=== PATIENT | male | born 1970 | race Caucasian/White ===

== ENCOUNTER 2021-11-20 13:23 | Emergency (ER) | payer OTHER ==
[2021-11-20 13:29] VITALS: BP 134/76
--- NOTE | 2021-11-20 14:59 | ED Physician Documentation ---
PD HPI UPPER EXT INJURY - Stated complaint Stated Complaint: LT BICEP PX - Chief complaint Chief Complaint: Ext Problem - History obtained from History obtained from: Patient - Additonal information Additional information: He was rotating the tires on his truck and felt a pop in his dominant, left arm. No significant pain at rest. Review of Systems Constitutional: denies: Fever, Chills Ears: reports: Reviewed and negative Nose: reports: Reviewed and negative PD PAST MEDICAL HISTORY - Allergies Allergies/Adverse Reactions: Allergies Allergy/AdvReac Type Severity Reaction Status Date / Time No Known Drug Allergies Allergy Verified 11/20/21 13:27 PD ED PE NORMAL - Vitals Vital signs reviewed: Yes - General General: Alert and oriented X 3, No acute distress - HEENT HEENT: PERRL, EOMI - Extremities Extremities: Other (He has a Missael deformity of the left bicep, no tenderness of the shoulder or elbow. He has minimal bicep strength but not none.) - Neuro Neuro: Alert and oriented X 3, Normal speech Results - Vitals Vitals: Vital Signs - 24 hr 11/20/21 13:27 Temperature 36.5 C Heart Rate 60 Respiratory 16 Rate Blood Pressure 134/76 H O2 Saturation 94 Oxygen O2 Source Room air Procedures - Splint (location) LUE Splint applied by: Physician Type of splint: Fiberglass, Long arm, Posterior (He was placed in a posterior fiberglass splint at 90 degrees with a sling to the left upper extremity.) Departure - Departure Disposition: 01 Home, Self Care Clinical Impression: Rupture of left biceps tendon Qualifiers: Encounter type: initial encounter Qualified Code(s): S46.212A - Strain of muscle, fascia and tendon of other parts of biceps, left arm, initial encounter Condition: Good Record reviewed to determine appropriate education?: Yes Comments: Keep the splint on and dry, do not remove it, do not get it wet. 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
== END 2021-11-20 15:06 | disposition home or self-care (01) ==
LOC: ED 13:23
DX: S46.212A Strain of muscle, fascia and tendon of other parts of biceps, left arm, initial encounter (principal); X58.XXXA Exposure to other specified factors, initial encounter
CPT/HCPCS: 29105